=== PATIENT | female | born 2005 | race African-American/Black ===

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

== ENCOUNTER 2024-12-15 12:26 | Emergency (ER) | payer MEDICAID, OTHER ==
[2024-12-15 12:35] VITALS: O2SAT 100
[2024-12-15 13:00] LABS: PLATELET COUNT (AUTO) 381 K/uL (150-450); RED BLOOD CELL COUNT(AUTO) 4.70 MIL/uL (4.00-5.20); RED CELL DISTRIBUTION WIDTH 19.2 % (11.5-14.5); WHITE BLOOD COUNT (AUTO) 14.1 K/uL (4.5-11.0)
[2024-12-15 13:11] LABS: CALCIUM, TOTAL 8.2 mg/dL (8.8-10.5); CREATININE 0.94 mg/dL (0.60-1.30); GLOMERULAR FILTR. RATE CALC > 60 mL/min (>60); SODIUM SERUM 143 mmol/L (136-145); UREA NITROGEN, BLOOD 13 mg/dL (7-18)
[2024-12-15 13:13] LABS: GLUCOSE,RANDOM 47 mg/dL (70-110)
[2024-12-15 13:37] VITALS: BP 120/75; PULSE 116; RESP 25; TEMP 96.6; O2SAT 100
[2024-12-15 13:53] LABS: RBC MORPHOLOGY COMMENT ABNORMAL RBC MORPH
== END 2024-12-15 13:49 | disposition short-term general hospital (02) ==
LOC: EMS 12:37
DX: S01.81XA Laceration without foreign body of other part of head, initial encounter (principal); F32.A Depression, unspecified; F41.9 Anxiety disorder, unspecified; F12.90 Cannabis use, unspecified, uncomplicated; F14.90 Cocaine use, unspecified, uncomplicated; V03.10XA Pedestrian on foot injured in collision with car, pick-up truck or van in traffic accident, initial encounter; Y93.89 Activity, other specified; Y92.89 Other specified places as the place of occurrence of the external cause; Y99.8 Other external cause status
CPT/HCPCS: 71045; 80048; 84703; 85025; 85610; 85730; 86850; 86900; 86901; 99285; 36415-L1; 36415-TC